=== PATIENT | male | born 1995 | race Caucasian/White ===

== ENCOUNTER 2025-07-28 10:59 | Emergency (ER) | payer OTHER, SELFPAY ==
[2025-07-28 10:59] VITALS: BMI 33.3
[2025-07-28 11:01] VITALS: BP 143/94
--- NOTE | 2025-07-28 11:16 | ED.GENMED ---
History of Present Illness
General
Chief Complaint: Chest Pain
Time Seen by Provider: 07/28/25 11:16
History of Present Illness
History of Present Illness:
FOCUSED PAST MEDICAL HISTORY
- No significant past medical history
REVIEW OF OLD RECORDS
- No old records available for review in [facility]
Note:
CHIEF COMPLAINT(S)
Chest discomfort
HISTORY OF PRESENT ILLNESS
The patient is a 29-year-old male presenting with chest discomfort that began yesterday morning while driving. He describes the sensation as an annoying feeling as if 'somebody is pressing' on his chest, though no one is physically pressing. The
patient states the discomfort was persistent throughout the day yesterday, tapering off a little at night. 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 During the physical examination by the attending physician, no specific area on the chest was
particularly tender, and movement did not seem to exacerbate symptoms.
The patient has self-identified historical issues with stomach acid, although current episodes have not aligned distinctly with these past experiences. He tried taking Pepcid last night, reporting a possible slight improvement, though this is
uncertain. The patient also reported occasional discomfort between the shoulder blades but described it as mild and non-consistent.
The patients EKG showed a first-degree AV block, which was explained as common and not related to the current chest discomfort. His primary concerns do not include typical severe pain, and he denies current use of medications for stress or anxiety,
although he does suggest work stress as a possible contributor.
SOCIAL HISTORY
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
PHYSICAL EXAM
General: Alert, no acute distress.
Skin: Warm, dry.
Head: Normocephalic, atraumatic.
Neck: Supple, trachea midline.
Eye, Ears, Nose, Mouth and Throat: Oral mucosa moist.
Cardiovascular: Normal peripheral perfusion, No edema.
Respiratory: Respirations are non-labored.
Gastrointestinal: Abdomen nondistended
Back: Normal range of motion, Normal alignment.
Musculoskeletal: Normal ROM, normal strength.
Neurological: Alert and oriented to person, place, time, and situation, No focal neurological deficit observed.
Psychiatric: Cooperative, appropriate mood & affect.
PLAN
1. Continue to monitor cardiac blood work and follow up with the patient upon receiving the results.
2. Consider administration of IV Pepsid and Toradol pending results, while continuously assessing the need based on patient feedback about symptom relief.
3. Encourage stress management techniques if stress-related causation is suspected upon further evaluation.
DIFFERENTIAL DIAGNOSIS
The Differential Diagnosis includes, in no particular order and is not limited to:
1. Gastroesophageal reflux disease (GERD)
2. Musculoskeletal pain related to lifting
3. Anxiety or stress-induced chest discomfort
4. Costochondritis
5. Myocardial ischemia
6. Peptic ulcer disease
7. Thoracic outlet syndrome
8. Pericarditis
9. Pneumothorax
10. Pulmonary embolism
RADIOLOGY
- Chest x-ray clear
EKG
- Sinus 59, normal axis, no acute ST abnormality, first-degree AV block with no old to compare
LABS
- CBC normal, troponin and chemistries unremarkable with exception of minimal elevation of ALT at 55
UPDATE
- We talked about the possibility of stress/anxiety and even stomach acid. Pepcid was given. He states he has been under a lot of stress as he works in construction.
SUMMARY OF ENCOUNTER
The patient, a 29-year-old male, was seen in the emergency department for chest discomfort that began the previous morning. He described the sensation as if someone was pressing on his chest. The discomfort persisted throughout the day and was
bothersome enough to seek medical attention during a job site audit. An EKG revealed a first-degree AV block, but cardiac blood work performed three hours prior was unremarkable, ruling out a myocardial infarction. The patients history of stomach
acid issues and work stress were considered as possible contributors. Pepsid was administered, resulting in slight improvement of symptoms.
DISPOSITION
Discharge.
ASSESSMENT
The patients chest discomfort is likely related to stress or anxiety, with a consideration of gastric issues such as GERD. Cardiac causes like myocardial ischemia are less likely due to normal cardiac labs and the first-degree AV block not being
related to his pain.
PLAN
1. Discharge the patient with a referral to see a store specialist for further evaluation, including a potential stress test.
2. Monitor and manage stress, considering stress management techniques if necessary.
3. Continue to manage gastric symptoms, possibly adjusting treatment for GERD if necessary.
PATIENT EDUCATION AND COUNSELING
The patient was advised about the potential causes of his chest discomfort, including stress and stomach acid issues. He was counseled on the importance of following up with a store specialist to rule out any cardiac concerns completely.
FOLLOW-UP INSTRUCTIONS
The patient was instructed to schedule a follow-up appointment with a store specialist for further evaluation of his chest discomfort.
MEDICATION RECONCILIATION
- Pepsid (famotidine) was administered during the visit.
MEDICAL DECISION MAKING
- Number and Complexity of Problems Addressed: Differential Diagnosis includes:
1. Gastroesophageal reflux disease (GERD)
2. Anxiety or stress-induced chest discomfort
3. Myocardial ischemia
- Data:
Category 1: Reviewed and independently interpreted EKG; cardiac labs were normal.
Category 2: Inputs were primarily from patient history; no external inputs were necessary.
- Risk: Consideration of Admission/Observation: Escalation of care including admission/observation was considered, but the patient was deemed safe for outpatient management with close follow-up. The patients symptoms were well-controlled upon
reevaluation, exams were reassuring, and the patient was agreeable to discharge and reliable for follow-up.
DIAGNOSIS
- Unspecified chest pain (ICD-10: R07.9)
- Gastroesophageal reflux disease (ICD-10: K21.9)
- Anxiety disorder, unspecified (ICD-10: F41.9)
Phy Exam
Physical Exam
Physical Exam:
See HPI
Scores
Heart Score for Chest Pain Patients
STEMI patient?: Not applicable
Course
Orders/Labs/Results
Orders:
Orders
07/28/25 11:17
Electrocardiogram (*1) Urgent
Reason for Study: Chest Pain
EKG- Treatment ONCE
CR Chest - 2 Views Urgent
Comment:
Reason For Exam: cp
07/28/25 11:33
Complete Blood Count/With Diff Urgent
Comprehensive Metabolic Panel Urgent
Troponin I Urgent
07/28/25 12:05
Famotidine [Pepcid] 20 mg IV NOW STA
Abnormal Lab Results
07/28/25
11:33
MPV 10.5 H fL
(7.4-10.4)
ALT 55 H U/L
(0-50)
Albumin 5.1 H g/dl
(3.5-5.0)
07/28/25 11:33
07/28/25 11:33
Vital Signs
Initial and Last Documented VS:
Initial Vital Signs
Temp Pulse Resp BP Pulse Ox
37.0 C 63 18 143/94 99
07/28/25 11:01 07/28/25 11:01 07/28/25 11:01 07/28/25 11:01 07/28/25 11:01
Last Documented Vital Signs
Temp Pulse Resp BP Pulse Ox
37.0 C 55 13 134/93 97
07/28/25 11:01 07/28/25 12:16 07/28/25 12:16 07/28/25 12:16 07/28/25 12:16
*Pulse Oximetry
SaO2: 99
Oxygen Mode of Delivery: Room air
Patient hypoxic: no
*Critical Care Note
Total Time (30-74mins, 75-104mins- exclusive of procedures): Not Applicable
ED Attending Note
-
Portions of this chart may have been created with voice recognition software.� Occasional wrong word or��sound alike� substitutions may have occurred due to the inherent limitations of voice recognition software.
Discharge Plan
Departure
Patient Disposition: Home (Routine Discharge)
Date of Disposition: 07/28/25
Time of Disposition: 12:46
Patient with high blood pressure during this ER visit?: Yes
Discharge Problem:
Chest pain
Instructions: Chest Pain NON-DHP License Issuer Follow Up, BLOOD PRESSURE
Referrals:
UNKNOWN - PT DOES,NOT KNOW [Family Provider]
Activity Restrictions/Additional Instructions:
I recommended 2-week course of [id number] omeprazole to help decrease the production of stomach acid. I also recommend that you follow-up with a store specialist closer to where you live. Return if worse or other concerns. Your troponin is
normal and your EKG shows no sign of heart attack but you do have 'a first degree AV block'�this is very common and has nothing to do with pain.
Interventions
Interventions:
*Risk Screen - Suicide Last Done: 07/28/25 11:02
*General Assessment Last Done: 07/28/25 11:02
*Neglect/Abuse Screening Last Done: 07/28/25 11:02
ED- Cardiac Assessment Last Done: 07/28/25 11:26
Discharge Date and Time
Print Language: MOSOT[place]
[2025-07-28 11:22] VITALS: BP 133/96
[2025-07-28 11:50] LABS: Hematocrit 44.3 % (39.0-52.0); Hemoglobin 15.9 g/dL (13.0-18.0); Mean Corp Hgb Conc. 35.9 g/dL (33.0-37.0); Mean Corpuscular Volume 86.2 fL (80.0-94.0); Nucleated Red Blood Cells % 0 % (-); Platelet Count 213 10^3/uL (130-400); Red Cell Dist. Width 11.9 % (11.5-14.5)
[2025-07-28 12:07] LABS: ALT (SGPT) 55 U/L (0-50); AST (SGOT) 34 U/L (17-59); Albumin 5.1 g/dl (3.5-5.0); Alkaline Phosphatase 52 U/L (38-126); Blood Urea Nitrogen 15 mg/dl (9-20); Calcium 9.9 mg/dl (8.4-10.2); Carbon Dioxide 27 mmol/L (22-30); Chloride 104 mmol/L (98-107); Estimated Creatinine Clearance > 125 ml/min; Glucose 90 mg/dl (70-99); Potassium 4.1 mmol/L (3.5-5.1); Sodium 139 mmol/L (135-145); Total Protein 8.1 g/dl (6.3-8.2); eGFR > 60.00
[2025-07-28] MEDS: PEPCID 20 MG IV (12:10)
[2025-07-28 12:15] LABS: Troponin I < 0.012 ng/ml
[2025-07-28 12:16] VITALS: BP 134/93
== END 2025-07-28 12:49 | disposition home or self-care (01) ==
LOC: EMR 10:59
PROVIDERS: EMERGENCY PHYSICIAN Emergency Medicine
DX: R07.9 Chest pain, unspecified (principal); I44.0 Atrioventricular block, first degree; R03.0 Elevated blood-pressure reading, without diagnosis of hypertension
CPT/HCPCS: 99284; 96374; 71046; 80053; 84484; 85025; 93005